=== PATIENT | female | born 1990 | race American Indian/Alaskan Native ===

== ENCOUNTER 2016-08-25 18:29 | Emergency (ER) | payer SELFPAY ==
[2016-08-25 19:57] VITALS: BP 103/69
[2016-08-25] MEDS ORDERED: NORCO 5/325 PO ONE (20:45)
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
--- NOTE | 2016-08-25 21:46 | XRay Report ---
FINAL REPORT PROCEDURE: XR ANKLE 3 RT TECHNIQUE: Right ankle, three views HISTORY: right ankle pain, injury COMPARISON: No prior studies are available for comparison. FINDINGS: No acute fracture or dislocation is seen. The ankle mortise and talar dome are intact. There is lateral soft tissue swelling IMPRESSION: No acute fracture or dislocation is seen
--- NOTE | 2016-08-25 21:49 | XRay Report ---
FINAL REPORT PROCEDURE: XR KNEE 3V RT TECHNIQUE: Right knee, three views HISTORY: right knee pain, injury COMPARISON: No prior studies are available for comparison. FINDINGS: No acute fracture or dislocation is seen. No focal osseous lesions are identified. IMPRESSION: No acute fracture
== END 2016-08-25 22:40 | disposition home or self-care (01) ==
LOC: ED 18:29
DX: S00.81XA Abrasion of other part of head, initial encounter (principal); M25.571 Pain in right ankle and joints of right foot; M25.561 Pain in right knee; Y04.0XXA Assault by unarmed brawl or fight, initial encounter; Y93.89 Activity, other specified; Y92.89 Other specified places as the place of occurrence of the external cause; Y99.8 Other external cause status